=== PATIENT | male | born 1960 | race Caucasian/White ===

== ENCOUNTER → 2017-02-06 | Outpatient (CLI) | payer OTHER | LOC: RAD 09:13 | PROVIDERS: ATTEND Nurse Practitioner | DX: J44.9 Chronic obstructive pulmonary disease, unspecified (principal); F17.200 Nicotine dependence, unspecified, uncomplicated | CPT/HCPCS: 71250 ==

== ENCOUNTER 2018-03-25 07:28 | Day surgery (SDC) | payer OTHER ==
[~2018-03-25 07:28] MED LIST: DIPHENHYDRAMINE HCL 50 MG/ML VIAL ONE; EPINEPHRINE INJ 1 MG/10 ML DISP.SYRIN ONE; FENTANYL CITRATE INJ/PF 100 MCG/2 ML AMPUL ONE; FLUMAZENIL INJ 0.5 MG/5 ML VIAL ONE; GLUCAGON,HUMAN RECOMB 1 MG INJ ONE; MIDAZOLAM 2 MG/2 ML INJ ONE; NALOXONE HCL INJ/PF 0.4 MG/1 ML SDV ONE; ONDANSETRON HCL INJ/PF 4 MG/2 ML SDV ONE
[2018-03-25] MEDS: MIDAZOLAM 2 MG/2 ML INJ ONE ×2 (08:07→08:11)
--- NOTE | 2018-03-25 09:08 | Operative Report ---
Operative Report DATE OF SURGERY: 03/25/18 Operative Report: The risks, benefits and alternatives of the procedure including risks of bleeding, perforation requiring surgery are explained to the patient in detail and informed consent was obtained. The patient is taken back to the endoscopy suite and placed in the left, lateral decubital position. Timeout was called. Conscious sedation medications are provided. A rectal examination is done which did not reveal any masses, tears or fissures. An Olympus videoscope was inserted into the patient's rectum. It is carefully advanced all the way to the cecum. The cecum was identified by the usual anatomical landmarks including the ileocecal valve as well as the appendiceal office. Photodocumentation is obtained. The scope was then sequentially pulled back via the various segments of the colon including the ascending colon, hepatic flexure, transverse colon, splenic flexure, descending colon and finally into the rectosigmoid portions of the colon. Retroflexion maneuver is performed. PREOPERATIVE DIAGNOSIS: Colorectal cancer screening POSTOPERATIVE DIAGNOSIS: 3 polyps that I removed via snare polypectomy. The polyps are located in the descending colon, junction of the descending and sigmoid colon, and another in the sigmoid colon itself. Patient has occasional diverticulosis. Internal hemorrhoids are noted OPERATION: Colonoscopy with snare polypectomy SURGEON: TYRELL LUTZ ANESTHESIA: Moderate Sedation - 4 mg of Versed, 75 mcg of fentanyl. Conscious sedation monitoring time 30 minutes. TISSUE REMOVED OR ALTERED: All polyps retrieved. COMPLICATIONS: None. ESTIMATED BLOOD LOSS: None. INTRAOPERATIVE FINDINGS: As noted above. PROCEDURE: Patient tolerated procedure well. No immediate postprocedure complications are noted. Patient discharged in good condition. Discharge date 03/25/2018. Discharge diet: Regular. Discharge activity: Regular. 2-3 week follow-up to discuss findings. 1-3 year surveillance colonoscopy. Depending on the pathology of the polyp. Patient is instructed to call the office or proceed to the emergency room should there be any further problems or questions.
[2018-03-25 09:34] VITALS: BP 133/87
== END 2018-03-25 09:35 | disposition home or self-care (01) ==
LOC: END 07:28
PROVIDERS: ATTEND Internal Medicine Gastroenterology
DX: Z12.11 Encounter for screening for malignant neoplasm of colon (principal); D12.4 Benign neoplasm of descending colon; D12.5 Benign neoplasm of sigmoid colon; K57.30 Diverticulosis of large intestine without perforation or abscess without bleeding; K64.8 Other hemorrhoids; J44.9 Chronic obstructive pulmonary disease, unspecified; Z79.82 Long term (current) use of aspirin; Z79.899 Other long term (current) drug therapy; Z79.51 Long term (current) use of inhaled steroids
CPT/HCPCS: 45385; 88305 ×2; J2250; J3010; J0171; J1200; J1610; J2310; J2405; J3490

== ENCOUNTER 2018-06-02 10:26 | Emergency (ER) | payer OTHER ==
--- NOTE | 2018-06-02 11:00 | ER Document Report ---
ED Medical Screen (RME) - General Chief Complaint: Shortness Of Breath Stated Complaint: SHORTNESS OF BREATH Time Seen by Provider: 06/02/18 10:52 Notes: RAPID MEDICAL EVALUATION DISCLOSURE I have seen this patient as part of a Rapid Medical Evaluation and, if applicable, placed any initially appropriate orders. The patient will be seen and fully evaluated, including a full history and physical exam, by a provider ( in Main ED or Fast Track) when a room becomes available. 57-year-old male PMH DVT here with complaints of shortness of breath for the past 7-10 days. He also has some minimal chest tightness. The symptoms are now particularly worse with exertion. He reports he could just be sitting there and all of a sudden he has the symptoms. He has not tried anything for the symptoms. He has chronic bilateral leg swelling which is unchanged from baseline. He was seen by his PCP today who told him to come in for evaluation of PE. Patient reports when he had a DVT years ago he was on Coumadin until he had a "bleed out". EXAM CTAB RRR 1+ pitting edema to mid shins bilaterally TRAVEL OUTSIDE OF THE [place] IN LAST 30 DAYS: No - Related Data Allergies/Adverse Reactions: No Known Allergies Allergy (Verified 06/02/18 10:26) Past Medical History - Social History Chew tobacco use (# tins/day): No Frequency of alcohol use: None Drug Abuse: None - Past Medical History Cardiac Medical History: Denies: Hx Coronary Artery Disease, Hx Heart Attack, Hx Hypertension Pulmonary Medical History: Reports: Hx Asthma, Hx Bronchitis, Hx COPD, Hx Pneumonia Neurological Medical History: Denies: Hx Cerebrovascular Accident, Hx Seizures Renal/ Medical History: Denies: Hx Peritoneal Dialysis Musculoskeltal Medical History: Denies Hx Arthritis - Immunizations Hx Diphtheria, Pertussis, Tetanus Vaccination: Yes Influenza Administration Date for 08/2017 - 01/2018 Season: 08/18/17 Physical Exam - Vital signs Vitals: Temp Pulse Resp BP Pulse Ox 97.8 F 71 18 142/96 H 99 06/02/18 10:40 07/16/18 10:40 06/02/18 10:40 06/02/18 10:40 06/02/18 10:40 Course - Vital Signs Vital signs: Temp Pulse Resp BP Pulse Ox 97.8 F 71 18 142/96 H 99 06/02/18 10:40 06/02/18 10:40 06/02/18 10:40 06/02/18 10:40 06/02/18 10:40 Doctor's Discharge - Discharge Referrals: SELVIN STEELE NP [Primary Care Provider] - Follow up as needed
[2018-06-02 11:42] LABS: ABSOLUTE EOSINOPHILS # (AUTO) 0.2 10^3/uL (0.0-0.6); ABSOLUTE LYMPHOCYTES (AUTO) 1.8 10^3/uL (0.5-4.7); ABSOLUTE MONOCYTES (AUTO) 0.5 10^3/uL (0.1-1.4); ABSOLUTE NEUT (AUTO) 5.6 10^3/uL (1.7-8.2); BASOPHILS % (AUTO) 0.2 % (0-2); HEMOGLOBIN 16.4 g/dL (13.5-17.0); LYMPHOCYTES % (AUTO) 22.8 % (13-45); MEAN CORPUSCULAR HEMOGLOBIN 29.8 pg (27.0-33.4); MEAN CORPUSCULAR HGB CONC 34.3 g/dL (32.0-36.0); MEAN CORPUSCULAR VOLUME 87 fl (80-97); MONOCYTES % (AUTO) 5.8 % (3-13); PLATELET COUNT 203 10^3/uL (150-450); RED BLOOD COUNT 5.53 10^6/uL (4.35-5.55); RED CELL DISTRIBUTION WIDTH 14.2 % (11.5-14.0); SEGMENTED NEUTROPHILS % (AUTO) 69.2 % (42-78); TOTAL CELLS COUNTED % (AUTO) 100 %
[2018-06-02 12:05] LABS: ANION GAP 10 (5-19); BLOOD UREA NITROGEN 19 mg/dL (7-20); CALCIUM 9.5 mg/dL (8.4-10.2); CARBON DIOXIDE 30 mmol/L (22-30); CHLORIDE 103 mmol/L (98-107); GLUCOSE 95 mg/dL (75-110); POTASSIUM 5.2 mmol/L (3.6-5.0); SODIUM 142.7 mmol/L (137-145)
[2018-06-02 12:55] LABS: NT PRO BNP 80 pg/mL (5-900)
[2018-06-02 12:56] LABS: TROPONIN I < 0.012 ng/mL
--- NOTE | 2018-06-02 13:12 | ER Document Report ---
ED Respiratory Problem - General Mode of Arrival: Ambulatory Information source: Patient TRAVEL OUTSIDE OF THE [place] IN LAST 30 DAYS: No <RUPAL NORRIS - Last Filed: 06/02/18 13:14> <MARGARITA ROTHMAN - Last Filed: 06/02/18 18:11> - General Chief Complaint: Shortness Of Breath Stated Complaint: SHORTNESS OF BREATH Time Seen by Provider: 06/02/18 10:52 Notes: Patient is a 57 year old male with COPD and a history of blood clots presents to the emergency department complaining of shortness of breath onset approximately 1 week ago. Patient states he has never had shortness of breath before and he called his lung doctor who urged him to come into the emergency department. Patient states he does not have any pain and feels fine at bedside. Patient states he was previously prescribed Coumadin but was taken off after he "bled out". (RUPAL NORRIS) - Related Data Allergies/Adverse Reactions: No Known Allergies Allergy (Verified 06/02/18 10:26) Past Medical History - General Information source: Patient - Social History Smoking Status: Former Smoker - quit in November Chew tobacco use (# tins/day): No Frequency of alcohol use: None Drug Abuse: None Family History: Other Patient has suicidal ideation: No Patient has homicidal ideation: No Pulmonary Medical History: Reports: Hx Asthma, Hx Bronchitis, Hx COPD, Hx Pneumonia - Immunizations Hx Diphtheria, Pertussis, Tetanus Vaccination: Yes Hx Pneumococcal Vaccination: 11/18/16 <RUPAL NORRIS - Last Filed: 06/02/18 13:14> Review of Systems - Review of Systems Constitutional: No symptoms reported EENT: No symptoms reported Cardiovascular: No symptoms reported Respiratory: See HPI, Short of breath Gastrointestinal: No symptoms reported Genitourinary: No symptoms reported Male Genitourinary: No symptoms reported Musculoskeletal: No symptoms reported Skin: No symptoms reported Hematologic/Lymphatic: No symptoms reported Neurological/Psychological: No symptoms reported -: Yes All other systems reviewed and negative <RUPAL NORRIS - Last Filed: 06/02/18 13:14> Physical Exam <RUPAL NORRIS - Last Filed: 06/02/18 13:14> <MARGARITA ROTHMAN - Last Filed: 06/02/18 18:11> - Vital signs Vitals: Temp Pulse Resp BP Pulse Ox 97.8 F 71 18 142/96 H 99 06/02/18 10:40 06/02/18 10:40 06/02/18 10:40 06/02/18 10:40 06/02/18 10:40 - Notes Notes: GENERAL: Alert, interacts well. No acute distress. HEAD: Normocephalic, atraumatic. EYES: Pupils equal, round, and reactive to light. Extraocular movements intact. ENT: Oral mucosa moist, tongue midline. NECK: Full range of motion. Supple. Trachea midline. LUNGS: Crackles in the left lung bases. No respiratory distress. HEART: Regular rate and rhythm. No murmurs, gallops, or rubs. ABDOMEN: Soft, non-tender. Non-distended. Bowel sounds present in all 4 quadrants. EXTREMITIES: Moves all 4 extremities spontaneously. NEUROLOGICAL: Alert and oriented x3. Normal speech. PSYCH: Normal affect, normal mood. SKIN: Warm, dry, normal turgor. No rashes or lesions noted. (URPAL NORRIS) Course - Laboratory Result Diagrams: 06/02/18 11:18 06/02/18 11:18 <RUPAL NORRIS - Last Filed: 06/02/18 13:14> - Laboratory Result Diagrams: 06/02/18 11:18 06/02/18 11:18 <MARGARITA ROTHMAN - Last Filed: 06/02/18 18:11> - Re-evaluation Re-evalutation: 06/02/18 15:25 CBC unremarkable, BMP shows slightly elevated potassium of 5.2, troponin negative, proBNP normal at 80, chest x-ray shows no acute process, CT angiogram of the chest shows no acute process, there is no pulmonary embolism. EKG is nonischemic. Vital signs are stable, there is no tachycardia or hypoxia. At present I do not have an explanation for why the patient is feeling short of breath but he denies any chest pain. At this time I do not believe this is an anginal equivalent. Patient will be discharged home and asked to follow-up with his conventional underwriter as an outpatient. (MARGARITA ROTHMAN) - Vital Signs Vital signs: Temp Pulse Resp BP Pulse Ox 97.8 F 71 23 H 129/97 H 98 06/02/18 10:40 06/02/18 10:40 06/02/18 15:42 06/02/18 15:42 06/02/18 15:42 - Laboratory Laboratory results interpreted by me: 06/02/18 06/02/18 11:18 11:18 RDW 14.2 H Potassium 5.2 H - EKG Interpretation by Me Additional EKG results interpreted by me: 06/02/18 15:26 EKG shows sinus rhythm at a rate of 68, normal normal intervals, no ST segment elevations or depressions, no T-wave inversions per my interpretation. (MARGARITA ROTHMAN) Discharge <RUPAL NORRIS - Last Filed: 06/02/18 13:14> <MARGARITA ROTHMAN - Last Filed: 06/02/18 18:11> - Discharge Clinical Impression: Dyspnea Qualifiers: Dyspnea type: shortness of breath Qualified Code(s): R06.02 - Shortness of breath Condition: Stable Disposition: HOME, SELF-CARE Additional Instructions: I do not know what is causing your shortness of breath. There is no sign of heart attack today, there is no sign of pneumonia, there is no sign of blood clot in your lungs, there is no sign of COPD exacerbation. Please follow-up with your conventional underwriter as an outpatient for further investigation. Please return to the emergency department should she develop any new or concerning symptoms. Referrals: SELVIN STEELE [employer] INSTRUCTOR [Primary Care Provider] - Follow up as needed Scribe Attestation: 06/02/18 18:11 I personally performed the services described in the documentation, reviewed and edited the documentation which was dictated to the scribe in my presence, and it accurately records my words and actions. (MARGARITA ROTHMAN) Scribe Documentation - Scribe Written by Maryibe:: Augustina Cee, 06/02/2018 13:19 acting as scribe for :: Jimmy <RUPAL NORRIS - Last Filed: 06/02/18 13:14>
--- NOTE | 2018-06-02 13:31 | RADIOLOGY REPORT (SQ) ---
EXAM DESCRIPTION: CHEST 2 VIEWS COMPLETED DATE/TIME: 06/02/2018 1:03 pm REASON FOR STUDY: SOB, LLL crackles COMPARISON: 07/30/2016 EXAM PARAMETERS: NUMBER OF VIEWS: two views TECHNIQUE: Digital Frontal and Lateral radiographic views of the chest acquired. RADIATION DOSE: NA LIMITATIONS: none FINDINGS: LUNGS AND PLEURA: No opacities, masses or pneumothorax. No pleural effusion. MEDIASTINUM AND HILAR STRUCTURES: No masses or contour abnormalities. HEART AND VASCULAR STRUCTURES: Heart normal size. No evidence for failure. BONES: No acute findings. HARDWARE: None in the chest. OTHER: No other significant finding. IMPRESSION: 1 No significant interval changes since the prior examination dated 07/30/2016. No acute findings. TECHNICAL DOCUMENTATION: JOB ID: [id number] [employer]- All Rights Reserved Reading location - IP/workstation name: [email or web address]
--- NOTE | 2018-06-02 15:04 | RADIOLOGY REPORT (SQ) ---
EXAM DESCRIPTION: CTA CHEST COMPLETED DATE/TIME: 06/02/2018 2:37 pm REASON FOR STUDY: SOB, h/o DVT COMPARISON: Chest x-ray dated 06/02/[address] chest CT scan dated January 2017 TECHNIQUE: CT scan of the chest performed using helical scanning technique with dynamic intravenous contrast injection. Images reviewed with lung, soft tissue and bone windows. Reconstructed coronal and sagittal MPR images reviewed. Additional 3 dimensional post-processing performed to develop Maximal Intensity Projection images (NC P). All images stored on PACS. All CT scanners at this facility use dose modulation, iterative reconstruction, and/or weight based d osing when appropriate to reduce radiation dose to as low as reasonably achievable (ALARA). [facility]: Dose Right [facility]: CareDose [facility]: Dose Right [facility]: Teradose 4D [facility]: Cellcrypt CONTRAST TYPE AND DOSE: contrast/concentration: Isovue 370.00 mg/ml; Total Contrast Delivered: 75.0 ml; Total Saline Delivered: 110.0 ml Contrast bolus optimized for the pulmonary arteries. Not diagnostic for the aorta. RENAL FUNCTION: Creatinine 0.91 RADIATION DOSE: CT Rad equipment meets quality standard of care and radiation dose reduction techniq ues were employed. CTDIvol: 13.6 - 15.0 mGy. DLP: 576 mGy-cm. . LIMITATIONS: None. FINDINGS: LUNGS AND PLEURA: No masses, infiltrates, or pneumothorax. No pleural effusions or pleura l calcifications. The previously described small pulmonary nodule in the right lower lobe is no long er identified. AORTA AND GREAT VESSELS: No aneurysm. Contrast bolus not optimized for the aorta. HEART: No pericardial effusion. No significant coronary artery calcifications. PULMONARY ARTERIES: No emboli visualized in the main pulmonary arteries or the segmental branches. HILAR AND MEDIASTINAL STRUCTURES: No identified masses or abnormal nodes. HARDWARE: None in the chest. UPPER ABDOMEN: No significant findings. Limited exam. THYROID AND OTHER SOFT TISSUES: No masses. No adenopathy. BONES: No acute or significant finding. 3D MIPS: Confirm above findings. OTHER: No other significant finding. IMPRESSION: No evidence for pulmonary embolic disease. No acute consolidations or pleural effusions are identified. Other findings as noted above. COMMENT: Quality ID # [id number]: Final reports with documentation of one or more dose reduction techniques (e.g., Automated exposure control, adjustment of the mA and/or kV according to patient size, use of iterative reconstruction technique) TECHNICAL DOCUMENTATION: JOB ID: [id number] [employer]- All Rights Reserved Reading location - IP/workstation name: [email or web address]
[2018-06-02 15:43] VITALS: BP 129/97
--- NOTE | 2018-06-02 19:26 | EKG REPORT ---
SEVERITY:- NORMAL ECG - SINUS RHYTHM : Confirmed by: Nidia Hurst 02-Jun-2018 19:24:10
== END 2018-06-02 16:03 | disposition home or self-care (01) ==
LOC: ER 10:26
DX: J44.9 Chronic obstructive pulmonary disease, unspecified (principal); R06.02 Shortness of breath; Z86.718 Personal history of other venous thrombosis and embolism; Z87.891 Personal history of nicotine dependence; Z87.01 Personal history of pneumonia (recurrent)
CPT/HCPCS: 36415; 71046; 71275; 80048; 83880; 84484; 85025; 93005; 93010; 99285

== ENCOUNTER 2019-05-18 10:34 | Day surgery (SDC) | payer OTHER ==
[~2019-05-18 10:34] MED LIST changes: -DIPHENHYDRAMINE HCL 50 MG/ML VIAL ONE; -EPINEPHRINE INJ 1 MG/10 ML DISP.SYRIN ONE; -FENTANYL CITRATE INJ/PF 100 MCG/2 ML AMPUL ONE; -FLUMAZENIL INJ 0.5 MG/5 ML VIAL ONE; -GLUCAGON,HUMAN RECOMB 1 MG INJ ONE; -MIDAZOLAM 2 MG/2 ML INJ ONE; -NALOXONE HCL INJ/PF 0.4 MG/1 ML SDV ONE; -ONDANSETRON HCL INJ/PF 4 MG/2 ML SDV ONE; +PROPOFOL INJ 200 MG/20 ML VIAL IV ONE
--- NOTE | 2019-05-18 12:20 | Operative Report ---
Operative Report DATE OF SURGERY: 05/18/19 Operative Report: The risks benefits and alternatives of the procedure explained to the patient in detail and informed consent is obtained.A GIF Olympus video scope was inserted into the patient's mouth and hypopharynx, the esophagus is identified intubated and insufflated, the scope was then advanced through the esophagus stomach and duodenum, retroflexion maneuver is done, the esophagus stomach and first and second portions of the duodenum examined. PREOPERATIVE DIAGNOSIS: Early satiety rule out peptic ulcer disease POSTOPERATIVE DIAGNOSIS: Gastritis status post biopsy by Helicobacter pylori OPERATION: EGD with biopsy SURGEON: TYRELL LUTZ ANESTHESIA: LMAC TISSUE REMOVED OR ALTERED: As noted above. COMPLICATIONS: None. ESTIMATED BLOOD LOSS: None. INTRAOPERATIVE FINDINGS: As noted above. PROCEDURE: Patient tolerated the procedure well. No immediate postprocedure complications are noted. Patient is discharged in good condition. Discharge date 05/18/2019. Discharge diet: Regular. Discharge activity: Regular. 2 to 3-week follow-up to discuss findings. Patient is instructed to call the office or proceed to the emergency room should there be any further problems or questions. Wait on the pathology.
[2019-05-18 13:39] VITALS: BP 142/89
== END 2019-05-18 12:17 | disposition home or self-care (01) ==
LOC: END 10:34
PROVIDERS: ATTEND Internal Medicine Gastroenterology
DX: K29.50 Unspecified chronic gastritis without bleeding (principal); K21.9 Gastro-esophageal reflux disease without esophagitis; J44.9 Chronic obstructive pulmonary disease, unspecified; Z79.82 Long term (current) use of aspirin; Z79.899 Other long term (current) drug therapy; Z79.01 Long term (current) use of anticoagulants; Z87.891 Personal history of nicotine dependence
CPT/HCPCS: 43239; 88342 ×2; 88305 ×2; 00731; J2704; 731